=== PATIENT | female | born 1980 | race African-American/Black ===

== ENCOUNTER 2017-01-20 16:13 | Emergency (ER) | payer MEDICAID, OTHER ==
[~2017-01-20] VITALS: Ht 170.2 cm; Wt 59.0 kg
[~2017-01-20 16:13] MED LIST: Z.0.NO CURRENT MEDS
[2017-01-20 16:15] VITALS: BP 120/72; PULSE 96; RESP 20; TEMP 98.4; O2SAT 100
--- NOTE | 2017-01-20 17:19 | PD ---
HPI Chief Complaint: Skin Problem Time Seen by Provider: 17:19 Travel History International Travel<30 days: No Contact w/Intl Traveler<30days: No Traveled to known affect area: No History of Present Illness HPI 37-year-old female presents to the emergency Department with complaint of a bug bite to her right medial ankle that is painful and she thinks is infected. She has multiple wounds to her bilateral lower extremities and she says that she's been getting bit by fleas. She says there was a cockroach "feasting on her wound "the other day while she was at her friend's house. Denies fever, chills , nausea, vomiting. Has not taken any medications or tried any treatments to alleviate her symptoms. Allergies to Lortab. Reports being up-to-date on her tetanus vaccination. No other medical complaints. No other modifying factors or associated signs and symptoms. PFSH Past Medical History Blood Disorders: Yes : 3 Para: 3 Past Surgical History Section: Yes (X 2) Social History Alcohol Use: Yes Tobacco Use: Yes (1/2 PPD) Substance Use: No Allergies-Medications (Allergen,Severity, Reaction): Coded Allergies: Lortab (Verified Allergy, Mild, 01/20/17) Reported Meds & Prescriptions Reported Meds & Active Scripts Active Ibuprofen 800 Mg Tab 800 Mg PO Q6HR PRN Keflex (Cephalexin) 500 Mg Cap 500 Mg PO Q8H 7 Days Review of Systems Except as stated in HPI: all other systems reviewed are Neg Physical Exam Narrative GENERAL: Well-nourished, well-developed female patient, in no acute distress; afebrile, nontoxic-appearing SKIN: Warm and dry. Multiple scars and scabbed wounds to bilateral lower legs to the lower leg and ankle area; the wound of concern is in healing process and is without erythema, edema, drainage; and without signs of infection. Bilateral lower extremities are supple and nontender 2+ pedal pulses and sensory intact without erythema or edema. HEAD: Atraumatic. Normocephalic. EYES: Pupils equal and round. No scleral icterus. No injection or drainage. ENT: Mucosa pink and moist. Airway patent. NECK: Trachea midline. CARDIOVASCULAR: Regular rate. RESPIRATORY: No accessory muscle use. GASTROINTESTINAL: Flat. MUSCULOSKELETAL: No obvious deformities. No clubbing. No cyanosis. No edema. NEUROLOGICAL: Awake and alert. Oriented 3. No obvious cranial nerve deficits. Motor grossly within normal limits. Normal speech. PSYCHIATRIC: Appropriate mood and affect; insight and judgment normal. Data Data Last Documented VS Vital Signs Date Time Temp Pulse Resp B/P Pulse Ox O2 Delivery O2 Flow Rate FiO2 01/20/17 16:15 98.4 96 20 120/72 100 Room Air MDM Medical Decision Making Medical Screen Exam Complete: Yes Emergency Medical Condition: Yes Medical Record Reviewed: Yes Differential Diagnosis Insect bites, wound infection, cellulitis Narrative Course 37-year-old female with multiple suspected insect bites to bilateral lower legs that are in different stages of scarring and healing. The suspected insect bite of concern is without signs of infection. It is without erythema, edema, drainage. I do not feel antibiotics are necessary but the patient is requesting antibiotics. I discussed this with the patient and she wants antibiotics just in case because she was told that if the infection gets into her bloodstream she could . Patient is up-to-date on her tetanus vaccination. Keflex and ibuprofen prescribed for home. Patient verbalizes understanding and agreement with treatment plan. Patient is medically cleared and stable for discharge. Discussed reasons to return to the emergency department. Instructed patient to follow up with primary care provider. Patient agrees with treatment plan. The patients vital signs are stable and the patient is stable for outpatient follow-up and treatment. Patient discharged home, stable and in no acute distress. Diagnosis Primary Impression: Insect bite of lower leg Referrals: Primary Care Physician Patient Instructions: Acute Wound Care (ED), General Instructions Additional Instructions: Keep area clean and dry Apply topical antibiotic ointment and cover bandage as needed for wound care Refer to acute wound care instructions for wound care Ibuprofen or Tylenol instructed and as needed for pain and inflammation Follow-up with primary care provider Return to the emergency department immediately with worsening of symptoms Med/Other Pt SpecificInfo: Prescription(s) given Scripts Ibuprofen 800 Mg [id number] Mg PO Q6HR PRN (PAIN) #30 TAB Ref 0 Prov:Bianca Bolivar 01/20/17 Cephalexin (Keflex)500 Mg [id number] Mg PO Q8H 7 Days Ref 0 Prov:Bianca Bolivar 01/20/17 Disposition: 01 DISCHARGE HOME Condition: Stable Bianca Bolivar Jan 20, 2017 17:19
[2017-01-20] MEDS ORDERED: IBUP800T23 PO (17:20)
[2017-01-20] MEDS ORDERED: CEPH-460 PO (17:20)
== END 2017-01-20 17:43 | disposition home or self-care (01) ==
LOC: NEPK 16:13
DX: S90.561A Insect bite (nonvenomous), right ankle, initial encounter (principal); F17.210 Nicotine dependence, cigarettes, uncomplicated; W57.XXXA Bitten or stung by nonvenomous insect and other nonvenomous arthropods, initial encounter
CPT/HCPCS: 99281